=== PATIENT | female | born 1980 | race Asian ===

== ENCOUNTER 2017-10-07 21:45 | Emergency (ER) | payer OTHER ==
[~2017-10-07] VITALS: Ht 160 cm; Wt 104.3 kg
[~2017-10-07 21:45] MED LIST: AMOX875T8 PO; BACTRIM DS1 TAB PO; BENZSOL4 OT; FLOXIN OT; FLUC100T3 PO; LORA10TA3 PO; METRONIDAZOL0.75 % VA; NYST100010 EX; NYST100016 TOP; PHENTERMINE37.5 M1 PO; TERC0.4C VA; TRIA0.1C5 EX; TRIM800T12 PO; UNITHROID25 MCG PO; VASOTEC5 MG OR; Z-PAK PO
[2017-10-07 23:18] VITALS: BP 122/84; TEMP 98.5
== END 2017-10-07 23:18 | disposition home or self-care (01) ==
LOC: ED 21:45
DX: I16.0 Hypertensive urgency (principal); R11.2 Nausea with vomiting, unspecified
CPT/HCPCS: 99282

== ENCOUNTER 2017-10-11 16:59 | Outpatient (CLI) | payer OTHER ==
[2017-10-11 17:33] LABS: PLATELET COUNT 153 K/uL (152-353)
[2017-10-11 17:45] LABS: POTASSIUM 3.4 mmol/L (3.6-5.2)
== END 2017-10-11 19:27 | disposition home or self-care (01) ==
LOC: LAB 16:59
PROVIDERS: Family Medicine
DX: R10.84 Generalized abdominal pain (principal); Z79.899 Other long term (current) drug therapy
CPT/HCPCS: 36415; 80053; 81000; 81025; 84439; 84443; 85027

== ENCOUNTER 2019-06-19 14:30 | Outpatient (CLI) | payer OTHER ==
[2019-06-19 15:19] LABS: PLATELET COUNT 227 K/uL (152-353)
[2019-06-19 15:22] LABS: POTASSIUM 3.8 mmol/L (3.6-5.2)
== END 2019-06-19 20:21 | disposition home or self-care (01) ==
LOC: LABW 14:30
PROVIDERS: Family Medicine
DX: R50.9 Fever, unspecified (principal); R10.84 Generalized abdominal pain; N39.0 Urinary tract infection, site not specified; Z86.19 Personal history of other infectious and parasitic diseases; E03.8 Other specified hypothyroidism; E66.9 Obesity, unspecified; I10 Essential (primary) hypertension; Z79.899 Other long term (current) drug therapy; R35.8 Other polyuria; R63.1 Polydipsia
CPT/HCPCS: 36415; 80053; 80061; 83036; 84439; 84443; 85027; 87490; 87590

== ENCOUNTER 2019-08-05 12:41 | Outpatient (CLI) | payer OTHER | END 2019-08-05 19:40 | disposition home or self-care (01) | LOC: RAD 12:41 | DX: M25.562 Pain in left knee (principal); M25.572 Pain in left ankle and joints of left foot; S99.812A Other specified injuries of left ankle, initial encounter ==

== ENCOUNTER 2019-12-31 12:27 | Outpatient (CLI) | payer OTHER ==
[2019-12-31 12:52] LABS: PLATELET COUNT 229 K/uL (152-353)
[2019-12-31 13:52] LABS: POTASSIUM 3.8 mmol/L (3.6-5.2)
== END 2019-12-31 22:57 | disposition home or self-care (01) ==
LOC: LABW 12:27
PROVIDERS: Family Medicine
DX: R10.2 Pelvic and perineal pain (principal); N93.8 Other specified abnormal uterine and vaginal bleeding; D64.89 Other specified anemias; Z86.018 Personal history of other benign neoplasm
CPT/HCPCS: 36415; 80053; 81000; 84439; 84443; 85027

== ENCOUNTER 2020-10-22 21:22 | Emergency (ER) | payer OTHER ==
[~2020-10-22] VITALS: Ht 160 cm; Wt 99.8 kg
[2020-10-22 23:07] VITALS: BP 110/76; TEMP 97.9
== END 2020-10-22 23:10 | disposition home or self-care (01) ==
LOC: ED 21:27
DX: T78.1XXA Other adverse food reactions, not elsewhere classified, initial encounter (principal); L50.0 Allergic urticaria
CPT/HCPCS: 36415; 96372; 96374; 99284; J0171; J2930

== ENCOUNTER 2020-10-31 20:50 | Emergency (ER) | payer OTHER ==
[~2020-10-31] VITALS: Ht 160 cm; Wt 99.8 kg
[2020-10-31 20:50] VITALS: BP 129/90; TEMP 97.9
== END 2020-10-31 22:00 | disposition home or self-care (01) ==
LOC: ED 20:50
DX: S01.511A Laceration without foreign body of lip, initial encounter (principal); S00.532A Contusion of oral cavity, initial encounter; Y04.2XXA Assault by strike against or bumped into by another person, initial encounter; Y92.89 Other specified places as the place of occurrence of the external cause
CPT/HCPCS: 99282

== ENCOUNTER 2021-08-17 11:14 | Outpatient (CLI) | payer OTHER ==
[2021-08-17 11:44] LABS: PLATELET COUNT 243 K/uL (152-353)
[2021-08-17 12:02] LABS: POTASSIUM 3.6 mmol/L (3.6-5.2)
== END 2021-08-17 20:26 | disposition home or self-care (01) ==
LOC: LABW 11:14
PROVIDERS: ATTEND Family Medicine
DX: Z01.818 Encounter for other preprocedural examination (principal); D64.89 Other specified anemias; I10 Essential (primary) hypertension; E03.8 Other specified hypothyroidism
CPT/HCPCS: 36415; 80053; 84439; 84443; 85027; 93005